=== PATIENT | male | born 1990 | race Caucasian/White ===

== ENCOUNTER 2018-03-24 21:30 | Emergency (ER) | payer MEDICAID ==
[~2018-03-24] VITALS: Ht 183.5 cm; Wt 71.7 kg
[2018-03-24 21:45] VITALS: BP 126/81
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
[2018-03-24] MEDS ORDERED: oxyCODONE HCL/Acetaminophen 5/325mg ORAL ONE (22:00)
[2018-03-24] MEDS ORDERED: IBUPROFEN600 MG ORAL (22:21)
[2018-03-24] MEDS ORDERED: PERCOCET 5-3251 EACH ORAL (22:21)
[2018-03-24 22:31] VITALS: BP 126/81
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
== END 2018-03-24 23:00 | disposition home or self-care (01) ==
LOC: EMR 22:10
DX: S52.124A Nondisplaced fracture of head of right radius, initial encounter for closed fracture (principal); V09.9XXA Pedestrian injured in unspecified transport accident, initial encounter; Y92.410 Unspecified street and highway as the place of occurrence of the external cause
CPT/HCPCS: 29105; 29505; 99284